=== PATIENT | male | born 1970 | race Caucasian/White ===

== ENCOUNTER 2018-03-13 19:37 | Emergency (ER) | payer OTHER ==
--- NOTE | 2018-03-13 20:23 | PDOC ---
Rapid Medical Evaluation Time Seen by Provider: 03/13/18 20:21 Medical Evaluation: 03/13/18 20:21 I have performed a [id number] evaluation. The patient presents with a chief complaint:Right eye FB sensation from today while blowing metal shavings at work. +Pain when blinking. Unk last tetanus Pertinent physical exam findings: EOMI;, FB noted to pt's right 3 o'clock on corneal. +conjunctiva/injected Neg hyphema I have ordered the following: Boostrix The patient will proceed to the ED for further evaluation.
[2018-03-13] MEDS ORDERED: DIPHTH,PERTUSS(ACELL),TET 0.5 ML DISP.SYRIN IM ONE (20:24)
[2018-03-13 20:26] VITALS: BP 138/89; PULSE 71; TEMP 98.2; BMI 26.5
--- NOTE | 2018-03-13 21:33 | PDOC ---
History of Present Illness - General Chief Complaint: Foreign Body (FB) Stated Complaint: EYE PAIN Time Seen by Provider: 03/13/18 20:21 History Source: Patient Exam Limitations: No Limitations - History of Present Illness Initial Comments: CHIEF COMPLAINT: 47 y/o male c/o right eye irritation. HISTORY OF PRESENT ILLNESS: The patient works in a metal plant and although he uses safety glasses, he thinks he got metal in his right eye today. He states every time he blinks he feels like something is scratching his eye. Vital signs on arrival are within normal limits. REVIEW OF SYSTEMS: GENERAL/CONSTITUTIONAL: No fever/chills. HEAD, EYES, EARS, NOSE AND THROAT: +foreign body sensation in right eye SKIN: No rash or easy bruising. NEUROLOGIC: No headache, vertigo, loss of consciousness, or loss of sensation. PHYSICAL EXAM: GENERAL: The patient is awake, alert, and fully oriented, in no acute distress. HEAD: Normal with no signs of trauma. ENT: right conjunctiva injected. Small FB at 3 o'clock position of right eye. No hyphema NEUROLOGICAL: Normal speech, normal gait. CN II-XII grossly intact. SKIN: Warm, dry, normal turgor, no rashes or lesions noted. Past History - Past Medical History Allergies/Adverse Reactions: Allergies Allergy/AdvReac Type Severity Reaction Status Date / Time No Known Allergies Allergy Verified 03/13/18 20:23 Home Medications: Ambulatory Orders NK [No Known Home Medication] 03/13/18 CVA: No COPD: No DVT: No Dementia: No - Suicide/Smoking/Psychosocial Hx Smoking History: Former smoker Have you smoked in the past 12 months: No Information on smoking cessation initiated: No Hx Alcohol Use: No Drug/Substance Use Hx: No Substance Use Type: None, Alcohol *Physical Exam - Vital Signs Last Vital Signs Temp Pulse Resp BP Pulse Ox 98.2 F 71 20 138/89 99 03/13/18 20:24 03/13/18 20:24 03/13/18 20:24 03/13/18 20:24 03/13/18 20:24 ED Treatment Course - Medications Given in the ED: ED Medications Discontinued Medications Generic Name Dose Route Start Last Admin Trade Name Freq PRN Reason Stop Dose Admin Diphtheria/Tetanus/Acell Pertussis 0.5 ml 03/13/18 20:24 03/13/18 21:01 Boostrix - IM 03/13/18 20:25 0.5 ml .ONCE ONE Administration Medical Decision Making - Medical Decision Making A/P: 47 y/o male with FB in right cornea. Plan is as follows: 1. Alexi lens irrigation 2. tetanus Flushed eye with alexi lens. Metal still seen. Applied erythro ointment to eye Called Dr. Heck. He would like Maxitroil ointment applied and eye covered. He spoke with patient and will talk to him in the morning over the phone and give follow up instructions. The patient verbalizes understanding of all instructions, has no further questions and is awaiting discharge. *DC/Admit/Observation/Transfer Diagnosis at time of Disposition: Foreign body in eyeball, right Qualifiers: Encounter type: initial encounter Qualified Code(s): S05.51XA - Penetrating wound with foreign body of right eyeball, initial encounter - Discharge Dispostion Disposition: HOME Condition at time of disposition: Good - Referrals Referrals: Shankar Heck MD [Staff Physician] - - Patient Instructions Printed Discharge Instructions: DI for Corneal Foreign Body-Eye Additional Instructions: Discharge INstructions: -KEep your eye covered with 2 eye patches -Apply eye ointment 3 times per day -Call Dr. Heck tomorrow morning for follow up instructions Print Language: FRISIAN - Post Discharge Activity Forms/Work/School Notes: Back to Work
[2018-03-13] MEDS ORDERED: ERYTHROMYCIN 0.5% OPHTHALMIC OINTMENT 3.5 GM TUBE ONE (21:40)
[2018-03-13] MEDS ORDERED: NEO/POLYMYX B SULF/DEXAMETH OPHTHALMIC OINTMENT 3.5 GM OD ONE (22:04)
== END 2018-03-13 23:02 | disposition home or self-care (01) ==
LOC: JERFT 19:37
PROC: 3E1CX8Z Irrigation of Eye using Irrigating Substance (ICD-10-PCS; principal; 2018-03-13)
PROC: 3E0234Z Introduction of Serum, Toxoid and Vaccine into Muscle, Percutaneous Approach (ICD-10-PCS; 2018-03-13)
PROC: 08C8XZZ Extirpation of Matter from Right Cornea, External Approach (ICD-10-PCS; 2018-03-13)
DX: T15.01XA Foreign body in cornea, right eye, initial encounter (principal); W31.89XA Contact with other specified machinery, initial encounter; Y93.H3 Activity, building and construction; Y92.69 Other specified industrial and construction area as the place of occurrence of the external cause; Y99.0 Civilian activity done for income or pay
CPT/HCPCS: 90715; 99281-25